=== PATIENT | male | born 1975 | race Hispanic/Latino ===

== ENCOUNTER 2020-04-11 16:44 | Inpatient (IN) | payer OTHER ==
[~2020-04-11] VITALS: Ht 185.4 cm; Wt 91.6 kg
[2020-04-11] MEDS ORDERED: HEPARIN SOD (PORCINE) 5,000 UNIT/ML VIAL IV ONE (17:15)
[2020-04-11] MEDS ORDERED: ASPIRIN 325 MG TAB PO ONE (17:15)
[2020-04-11] MEDS ORDERED: HEPARIN 25,000 UNIT 25,000 UNIT in DEXTROSE 5% 250ML 250 ML IV SCH (17:15)
[2020-04-11] MEDS ORDERED: HEPARIN 25,000 UNIT 1,000 UNIT in DEXTROSE 5% 250ML 250 ML IV SCH (17:30)
[2020-04-11] MEDS ORDERED: HEPARIN 25,000 UNIT DRIP IV ONE (17:38)
[2020-04-11 17:43] LABS: BASOPHILS # (AUTO) 0.1 (0.0-0.1); BASOPHILS % 0.4 % (0.0-1.0); EOSINOPHILS % 0.2 % (0.0-6.0); HEMATOCRIT 48.4 % (38.2-49.6); HEMOGLOBIN 16.3 g/dL (14.0-18.0); LYMPHOCYTES # (AUTO) 2.3 (1.0-3.2); LYMPHOCYTES % 13.1 % (18.0-39.1); MEAN CORPUSCULAR HEMOGLOBIN 28.5 pg (28-32); MEAN CORPUSCULAR HGB CONC 33.7 g/dL (31-35); MEAN CORPUSCULAR VOLUME 84.6 fL (81-99); MONOCYTES # (AUTO) 1.5 (0.2-0.8); MONOCYTES % 8.8 % (4.4-11.3); NEUTROPHILS # (AUTO) 13.2 (2.1-6.9); NEUTROPHILS % 76.6 % (38.7-80.0); PLATELET COUNT 265 x10e3/uL (140-360); RED BLOOD COUNT 5.72 x10e6/uL (4.3-5.7); RED CELL DISTRIBUTION WIDTH 13.8 % (11.7-14.4)
--- OUTSIDE RECORDS SUMMARY | 2020-04-11 17:55 | XMS REPORT | Continuity of Care Document ---
Author Author [facility] t Organization [facility] Address [address] [place] [address] Phone Unavailable Care Team Providers Care Hospitality Ambassador Name Role Phone Unavailable Unavailable Problems This patient has no known problems. Allergies, Adverse Reactions, Alerts This patient has no known allergies or adverse reactions. Social History Smoking Status Start Date Stop Date Source Former Smoker [facility] ractice Medications This patient has no known medications. Vital Signs Vital Name Observation Time Observation Value Comments Source BP Diastolic 2020-04-11 00:00:00 112 mm[Hg] [facility] Height 2020-04-11 00:00:00 73 [in_i] [facility] BMI (Body Mass Index) 2020-04-11 00:00:00 26.8 kg/m2 [facility] BP Systolic 2020-04-11 00:00:00 156 mm[Hg] [facility] Body Weight 2020-04-11 00:00:00 203 [lb_av] [facility] Procedures Procedure Date / Time Performed Performing Clinician Sourc e electrocardiogram 2020-04-11 00:00:00 [facility] Plan of Care Planned Activity Planned Date Details Comments Source Diagnostic Test Pending 2020-04-11 00:00:00 hepatitis C viru s RNA, quant, PCR, serum or plasma [code = hepatitis C virus RNA, quant, PCR, serum or plasma] [facility] Diagnostic Test Pending 2020-04-11 00:00:00 urinalysis, dips tick [code = urinalysis, dipstick] [facility] Diagnostic Test Pending 2020-04-11 00:00:00 CBC w/ auto diff [code = CBC w/ auto diff] [facility] Diagnostic Test Pending 2020-04-11 00:00:00 CMP, serum or pl asma [code = CMP, serum or plasma] [facility] Diagnostic Test Pending 2020-04-11 00:00:00 lipid panel, ser um [code = lipid panel, serum] [facility] Diagnostic Test Pending 2020-04-11 00:00:00 TSH, serum or pl asma [code = TSH, serum or plasma] [facility] Diagnostic Test Pending 2020-04-11 00:00:00 PSA, serum or pl asma [code = PSA, serum or plasma] [facility] Diagnostic Test Pending 2020-04-11 00:00:00 culture, urine [ code = culture, urine] [facility] Future Appointment 2020-10-08 00:00:00 Emre Samano Jr, [address]; [address], [place] [address] [facility] Encounters Start Date/Time End Date/Time Encounter Type Admission Type Attendi [facility] Care Department Encounter ID Source 2020-04-11 00:00:00 2020-04-11 00:00:00 Emre Samano Jr, MD: [id number], [address], [place] [address], Ph. [facility] [place] - [facility] - [facility] [id number] [facility] Results Test Description Test Time Test Comments Results Result Comments Source EKG study 2020-04-11 12:50:00 Test Item Rate & Rhythm (test code = Rate & Rhythm) sinus regular QRS (test code = QRS) [place] Interval (test code = [place] Interval) QRS Duration (test code = QRS Duration) QT Interval (test code = QT Interval) [facility]) panel - [id number] 11:14:00* Test Item Value Reference Range Interpretation Comments Color Color (test code = Color Color) dark yellow Color Appearance (test code = Color Appearance) clear Color Glucose (test code = Color Glucose) negative Color Bilirubin (test code = Color Bilirubin) small Color Ketones (test code = Color Ketones) trace Color Specific [place] (test code = Color Specific [place]) 1.030 Color Blood (test code = Color Blood) moderate Color PH (test code = Color PH) 6.0 Color Protein (test code = Color Protein) 100 Color Urobilinogen (test code = Color Urobilinogen) 0.2 Color Nitrites (test code = Color Nitrites) negative Color Leukocytes (test code = Color Leukocytes) negative [facility]
[2020-04-11 17:58] LABS: ALANINE AMINOTRANSFERASE 63 IU/L (0-55); ALBUMIN 3.8 g/dL (3.5-5.0); ALKALINE PHOSPHATASE 71 IU/L (40-150); ANION GAP 12.8 mmol/L (8-16); BLOOD UREA NITROGEN 12 mg/dL (7-26); BUN/CREATININE RATIO 16 (6-25); CALCIUM 8.9 mg/dL (8.4-10.2); CARBON DIOXIDE 23 mmol/L (22-29); CHLORIDE 105 mmol/L (98-107); CREATINE KINASE 1638 IU/L (30-200); CREATININE, SERUM 0.77 mg/dL (0.72-1.25); EST GLOMERULAR FILTRATION RATE > 60 ML/MIN (60-); GLUCOSE 103 mg/dL (74-118); POTASSIUM 3.8 mmol/L (3.5-5.1); SODIUM 137 mmol/L (136-145)
[2020-04-11 18:02] LABS: INR 0.94
[2020-04-11 18:03] LABS: PARTIAL THROMBOPLASTIN TIME 28.7 seconds (23.8-35.5)
--- NOTE | 2020-04-11 18:14 | Emergency Department Note ---
History of Present Illnes History of Present Illness Chief Complaint: Chest Pain History of Present Illness This is a 44 year old male Chief Complaint Comment PATIENT SENT BY DR PYLE FOR HEART CATH; PATIENT WITH CHEST PAIN STARTING YESTERDAY WHILE HE WAS PLAYING TENNIS; RATES PAIN 5/10 AT THIS TIME. PATIENT ALERT AND ORIENTED, RESP EVEN AND NONLABORED, APPEARS IN NO DISTRESS Historian: Patient Arrival Mode: Car Engineering Supervisor Required: No Onset (how long ago): day(s) (1) Location: Chest Quality: sharp Radiation: Reports non-radiation Severity: moderate Onset quality: sudden Duration (how long): day(s) (1) Timing of current episode: constant Progression: worsening Chronicity: new Context: Denies recent illness, Denies recent surgery Relieving factors: none Exacerbating factors: none Associated symptoms: Reports denies other symptoms Treatments prior to arrival: none Past Medical/Family History Physician Review I have reviewed the patient's past medical and family history. Any updates have been documented here. Past Medical History Recent Fever: No Clinical Suspicion of Infectio: No New/Unexplained Change in Ment: No Past Medical History: None Past Surgical History: None Social History Smoking Cessation: Never Smoker Counseling Performed: No Alcohol Use: Occasional Any Illegal Drug Use: No Physically hurt or threatened: No Other Any Pre-Existing Lines (PICC,: No Review of Systems Review of Systems Constitutional: Reports as per HPI EENTM: Reports no symptoms Cardiovascular: Reports as per HPI Respiratory: Reports no symptoms Gastrointestinal: Reports no symptoms Genitourinary: Reports no symptoms Musculoskeletal: Reports no symptoms Integumentary: Reports no symptoms Neurological: Reports no symptoms Psychological: Reports no symptoms Endocrine: Reports no symptoms Hematological/Lymphatic: Reports no symptoms Physical Exam Related Data Allergies: Coded Allergies: No Known Allergies (Unverified , 04/11/20) Triage Vital Signs Vital Signs Date Time Temp Pulse Resp B/P (MAP) Pulse Ox O2 Delivery O2 Flow Rate FiO2 04/11/20 16:59 99.3 123 18 143/108 97 Room Air Vital signs reviewed: Yes Physical Exam CONSTITUTIONAL Constitutional: Present well-developed, Present well-nourished HENT HENT: Present normocephalic, Present atraumatic, Present oropharynx clear/moist, Present nose normal HENT L/R: Present left ext ear normal, Present right ext ear normal EYES Eyes: Reports PERRL, Reports conjunctivae normal NECK Neck: Present ROM normal PULMONARY Pulmonary: Present effort normal, Present breath sounds normal CARDIOVASCULAR Cardiovascular: Present regular rhythm, Present heart sounds normal, Present capillary refill normal, Present normal rate GASTROINTESTINAL Abdominal: Present soft, Present nontender, Present bowel sounds normal GENITOURINARY Genitourinary: Present exam deferred SKIN Skin: Present warm, Present dry MUSCULOSKELETAL Musculoskeletal: Present ROM normal NEUROLOGICAL Neurological: Present alert, Present oriented x 3, Present no gross motor or sensory deficits PSYCHOLOGICAL Psychological: Present mood/affect normal, Present judgement normal Results Laboratory Result Diagram: 04/11/20169904/11/201699 Laboratory Laboratory Tests Test 04/11/20 17:00 White Blood Count 17.22 x10e3/uL (4.8-10.8) Red Blood Count 5.72 x10e6/uL (4.3-5.7) Hemoglobin 16.3 g/dL (14.0-18.0) Hematocrit 48.4 % (38.2-49.6) Mean Corpuscular Volume 84.6 fL (81-99) Mean Corpuscular Hemoglobin 28.5 pg (28-32) Mean Corpuscular Hemoglobin Concent 33.7 g/dL (31-35) Red Cell Distribution Width 13.8 % (11.7-14.4) Platelet Count 265 x10e3/uL (140-360) Neutrophils (%) (Auto) 76.6 % (38.7-80.0) Lymphocytes (%) (Auto) 13.1 % (18.0-39.1) Monocytes (%) (Auto) 8.8 % (4.4-11.3) Eosinophils (%) (Auto) 0.2 % (0.0-6.0) Basophils (%) (Auto) 0.4 % (0.0-1.0) Neutrophils # (Auto) 13.2 (2.1-6.9) Lymphocytes # (Auto) 2.3 (1.0-3.2) Monocytes # (Auto) 1.5 (0.2-0.8) Eosinophils # (Auto) 0.0 (0.0-0.4) Basophils # (Auto) 0.1 (0.0-0.1) Absolute Immature Granulocyte (auto 0.15 x10e3/uL (0-0.1) Prothrombin Time 13.0 seconds (11.9-14.5) Prothromb Time International Ratio 0.94 Activated Partial Thromboplast Time 28.7 seconds (23.8-35.5) Sodium Level 137 mmol/L (136-145) Potassium Level 3.8 mmol/L (3.5-5.1) Chloride Level 105 mmol/L (98-107) Carbon Dioxide Level 23 mmol/L (22-29) Anion Gap 12.8 mmol/L (8-16) Blood Urea Nitrogen 12 mg/dL (7-26) Creatinine 0.77 mg/dL (0.72-1.25) Estimat Glomerular Filtration Rate > 60 ML/MIN (60-) BUN/Creatinine Ratio 16 (6-25) Glucose Level 103 mg/dL (74-118) Calcium Level 8.9 mg/dL (8.4-10.2) Total Bilirubin 0.7 mg/dL (0.2-1.2) Aspartate Amino Transf (AST/SGOT) 217 IU/L (5-34) Alanine Aminotransferase (ALT/SGPT) 63 IU/L (0-55) Alkaline Phosphatase 71 IU/L (40-150) Creatine Kinase 1638 IU/L (30-200) Creatine Kinase MB 136.70 ng/mL (0-5.0) Troponin I 40.674 ng/mL (0-0.300) Total Protein 7.7 g/dL (6.5-8.1) Albumin 3.8 g/dL (3.5-5.0) Globulin 3.9 g/dL (2.3-3.5) Albumin/Globulin Ratio 1.0 (0.8-2.0) Lab results reviewed: Yes Imaging Imaging results reviewed: Yes Procedures 12 Lead ECG Interpretation ECG Interpretation : Engineering Supervisor: Interpreted by ED physician Date: Apr 11, 2020 Rhythm: sinus rhythm Rate: normal QRS axis: normal ST segment elevation: I, II, aVL Clinical Impression: myocardial ischemia Assessment & Plan Medical Decision Making MDM 44-year-old otherwise healthy male presents from Dr. Kennedy's clinic for concerns for STEMI. Dr. luciano is made aware and will take to the catheter lab. EKG is consistent with lateral STEMI. 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 Reassessment Reassessment time: 18:13 Reassessment NAD Assessment & Plan Final Impression: (1) STEMI (ST elevation myocardial infarction) Depart Disposition: ADMITTED Last Vital Signs Date Time Temp Pulse Resp B/P (MAP) Pulse Ox O2 Delivery O2 Flow Rate FiO2 04/11/20 16:59 99.3 123 18 143/108 97 Room Air Medications in the ED Aspirin 325 mg ONCE ONCE PO Last administered on 04/11/20at 17:37; Admin Dose 325 MG; Start 04/11/20 at 17:15; Stop 04/11/20 at 17:18; Status DC Heparin Sodium (Porcine) 4,000 unit ONCE ONCE IV Last administered on 04/11/20at 17:37; Admin Dose 4,000 UNIT; Start 04/11/20 at 17:15; Stop 04/11/20 at 17:19; Status DC Heparin Sodium/ Dextrose 95485 unit/Dextrose 250 ml @ 0 mls/hr TITRATE IV ; Start 04/11/20 at 17:15; Stop 04/18/20 at 17:14; Status UNV Heparin Sodium/ Dextrose 1000 unit/Dextrose 250 ml @ 10 mls/hr TITRATE IV Last administered on 04/11/20at 17:37; Admin Dose 10 MLS/HR; Start 04/11/20 at 17:30; Stop 04/18/20 at 17:29 Heparin Sodium/ Dextrose 25,000 unit STK-MED ONCE IV ; Start 04/11/20 at 17:38; Stop 04/11/20 at 17:32; Status DC LEIGHANN LOMBARDI MD Apr 11, 2020 18:14
--- OUTSIDE RECORDS SUMMARY | 2020-04-11 18:20 | XMS REPORT | Continuity of Care Document ---
Author Author [facility] t Organization [facility] Address [address] [place] [address] Phone Unavailable Care Team Providers Care Software Engineer Advisor Name Role Phone Unavailable Unavailable Problems This patient has no known problems. Allergies, Adverse Reactions, Alerts This patient has no known allergies or adverse reactions. Social History Smoking Status Start Date Stop Date Source Former Smoker [facility] ractice Medications This patient has no known medications. Vital Signs Vital Name Observation Time Observation Value Comments Source BP Diastolic 2020-04-11 00:00:00 112 mm[Hg] [facility] Height 2020-04-11 00:00:00 73 [in_i] [facility] BMI (Body Mass Index) 2020-04-11 00:00:00 26.8 kg/m2 [facility] BP Systolic 2020-04-11 00:00:00 156 mm[Hg] [facility] Body Weight 2020-04-11 00:00:00 203 [lb_av] [facility] Procedures Procedure Date / Time Performed Performing Clinician Sourc e electrocardiogram 2020-04-11 00:00:00 [facility] Plan of Care Planned Activity Planned Date Details Comments Source Diagnostic Test Pending 2020-04-11 00:00:00 hepatitis C viru s RNA, quant, PCR, serum or plasma [code = hepatitis C virus RNA, quant, PCR, serum or plasma] [facility] Diagnostic Test Pending 2020-04-11 00:00:00 urinalysis, dips tick [code = urinalysis, dipstick] [facility] Diagnostic Test Pending 2020-04-11 00:00:00 CBC w/ auto diff [code = CBC w/ auto diff] [facility] Diagnostic Test Pending 2020-04-11 00:00:00 CMP, serum or pl asma [code = CMP, serum or plasma] [facility] Diagnostic Test Pending 2020-04-11 00:00:00 lipid panel, ser um [code = lipid panel, serum] [facility] Diagnostic Test Pending 2020-04-11 00:00:00 TSH, serum or pl asma [code = TSH, serum or plasma] [facility] Diagnostic Test Pending 2020-04-11 00:00:00 PSA, serum or pl asma [code = PSA, serum or plasma] [facility] Diagnostic Test Pending 2020-04-11 00:00:00 culture, urine [ code = culture, urine] [facility] Future Appointment 2020-10-08 00:00:00 Emre Samano Jr, [address]; [address], [place] [address] [facility] Encounters Start Date/Time End Date/Time Encounter Type Admission Type [facility] Encounter ID Source 2020-04-11 00:00:00 2020-04-11 00:00:00 Emre Samano Jr, MD: [address], [address], [place] [address], Ph. [facility] [place] - [facility] - _[facility] [id number] [facility] Results Test Description Test Time Test Comments Results Result Comments Source EKG study 2020-04-11 12:50:00 Test Item Rate & Rhythm (test code = Rate & Rhythm) sinus regular QRS (test code = QRS) [place] Interval (test code = RI Interval) QRS Duration (test code = QRS Duration) QT Interval (test code = QT Interval) [facility] macro (dipstick) panel - [id number] 11:14:00* Test Item Value Reference Range Interpretation Comments Color Color (test code = Color Color) dark yellow Color Appearance (test code = Color Appearance) clear Color Glucose (test code = Color Glucose) negative Color Bilirubin (test code = Color Bilirubin) small Color Ketones (test code = Color Ketones) trace Color Specific [place] (test code = Color Specific [place]) 1.030 Color Blood (test code = Color Blood) moderate Color PH (test code = Color PH) 6.0 Color Protein (test code = Color Protein) 100 Color Urobilinogen (test code = Color Urobilinogen) 0.2 Color Nitrites (test code = Color Nitrites) negative Color Leukocytes (test code = Color Leukocytes) negative [facility]
[2020-04-11] MEDS ORDERED: HEPARIN SOD/SOD CHLORIDE 2,000 ML ONE (18:46)
[2020-04-11] MEDS ORDERED: LIDOCAINE HCL 2% LOCAL 20 ML VIAL ONE (18:46)
[2020-04-11] MEDS ORDERED: IOPAMIDOL 370 MG/ML 200 ML INFUS..BTL INJ ONE (18:46)
[2020-04-11] MEDS ORDERED: FENTANYL CITRATE/PF 100MCG/2 ML INJ ONE (19:16)
[2020-04-11] MEDS ORDERED: MIDAZOLAM HCL 2 MG/2 ML VIAL ONE (19:16)
[2020-04-11] MEDS ORDERED: SODIUM CHLORIDE 0.9% 1000ML 1,000 ML ONE (19:16)
[2020-04-11] MEDS ORDERED: HEPARIN SOD (PORCINE) 1000 UNIT/ML 30ML ONE (19:17)
[2020-04-11] MEDS ORDERED: NITROGLYCERIN/D5W 200 MCG/ML 250 ML ONE (19:17)
[2020-04-11] MEDS ORDERED: BIVALRIUDIN 250 MG/VIAL VIAL IV ONE (19:18)
[2020-04-11] MEDS ORDERED: SODIUM CHLORIDE 0.9% 50ML 50 ML ONE (19:18)
--- NOTE | 2020-04-11 19:20 | NUR ---
TAKEN TO SUPERVISOR HAIRSPRING FABRICATION, 2CKAVITHA RN'S AT BS TO TRANSPORT
[2020-04-11] MEDS ORDERED: PRASUGREL 10 MG TAB ONE (19:59)
[2020-04-11] MEDS ORDERED: EPTIFIBATIDE 20 ML ONE (20:00)
[2020-04-11] MEDS ORDERED: EPTIFIBATIDE 75mg 100ML 0 ML ONE (20:00)
[2020-04-11] MEDS ORDERED: MORPHINE SULFATE INJ 4 MG/ML INJ 1ML IV PRN (20:30)
[2020-04-11] MEDS ORDERED: HYDROCODONE/APAP 5MG-325MG TAB PO PRN (20:30)
[2020-04-11] MEDS ORDERED: METOPROLOL SUCCINATE 25 MG TAB XL PO ONE (20:30)
[2020-04-11] MEDS ORDERED: ONDANSETRON HCL INJ 2MG/ML 2ML 2 MG/ML VIAL IV PRN (20:30)
[2020-04-11] MEDS ORDERED: ZOLPIDEM TARTRATE 5 MG TAB PO PRN (20:30)
[2020-04-11] MEDS ORDERED: SODIUM CHLORIDE FLUSH 10 ML SYR INJ PRN (20:30)
[2020-04-11] MEDS ORDERED: ACETAMINOPHEN 325 MG TAB PO PRN (20:30)
[2020-04-11 20:45] VITALS: BP 121/91
--- NOTE | 2020-04-11 20:45 | Diagnostic Imaging Report ---
EXAMINATION: CHEST SINGLE (PORTABLE) INDICATION: Chest pain. COMPARISON: None FINDINGS: TUBES and LINES: None. LUNGS: Lungs are mildly hypoinflated. There is no evidence of pneumonia or pulmonary edema. PLEURA: No pleural effusion or pneumothorax. HEART AND MEDIASTINUM: The cardiomediastinal silhouette is unremarkable. BONES AND SOFT TISSUES: No acute osseous lesion. Soft tissues are unremarkable. UPPER ABDOMEN: No free air under the diaphragm. IMPRESSION: No acute thoracic abnormality. Signed by: Dr. Joao Ho M.D. on 04/11/2020 8:42 PM
[2020-04-11 20:57] VITALS: BP 124/91
[2020-04-11] MEDS: ATORVASTATIN 40 MG TAB PO SCH (21:38)
[2020-04-11] MEDS: SODIUM CHLORIDE 0.9% 1000ML 1,000 ML IV SCH (21:39)
[2020-04-11 21:40] VITALS: BP 119/93
[2020-04-11 21:44] VITALS: BP 119/93
[2020-04-11 22:09] VITALS: BP 119/93
[2020-04-12] VITALS (11 sets, daily range): BP systolic 118–134; BP diastolic 59–100
--- NOTE | 2020-04-12 00:59 | Operative Report ---
DATE OF PROCEDURE: 04/11/2020 SURGEON: Jt Umana MD INDICATIONS: 1. Non ST-segment elevation myocardial infarction. 2. Acute systolic heart failure. PROCEDURES PERFORMED: 1. Left heart catheterization, selective coronary angiography. 2. Thrombectomy, angioplasty and stent placed in the proximal left anterior descending artery. 3. Conscious sedation, administration, hemodynamic and neurological monitoring in recovery by laborer dairy farm RN, supervision by MD, 65 minutes. 4. Deployment of right groin Perclose closure device. COMPLICATIONS: None. RECOMMENDATIONS: Dual antiplatelet therapy for at least one year. DESCRIPTION OF PROCEDURE: Access obtained in the right femoral artery. A 6-Cuban sheath was placed. The patient was administered intravenous Angiomax, oral prasugrel, aspirin as well as intracoronary Integrilin for anticoagulation. The left main was cannulated using XB 3.0, 6-Cuban guiding catheter, 99% proximal left anterior descending artery stenosis with thrombus and SHE 1 flow. Mid left anterior descending artery 50% stenosis circumflex mid 50% stenosis. Right coronary artery dominant vessel. Diffuse 20-30% stenosis. LV end-diastolic pressure was markedly elevated. A short Runthrough wire was advanced across the lesion for support. Thrombectomy using an export catheter. Following which, predilatation with 2.5 mm balloon was performed. A single 3.0 x 20 mm synergy drug-eluting stent was deployed at 20 atmospheres post dilated with a 3.5 mm noncompliant balloon, excellent end result, 0% residual stenosis SHE-3 flow. No complications. Wire and guide sheath were removed. Right groin repaired using Perclose closure device. The patient admitted as an inpatient to the hospital. Jt Umana MD KSB/MODL /[id number]
[2020-04-12 05:10] LABS: BASOPHILS # (AUTO) 0.1 (0.0-0.1); BASOPHILS % 0.4 % (0.0-1.0); EOSINOPHILS # (AUTO) 0.1 (0.0-0.4); EOSINOPHILS % 0.4 % (0.0-6.0); HEMATOCRIT 45.6 % (38.2-49.6); HEMOGLOBIN 15.4 g/dL (14.0-18.0); LYMPHOCYTES # (AUTO) 2.9 (1.0-3.2); LYMPHOCYTES % 21.4 % (18.0-39.1); MEAN CORPUSCULAR HEMOGLOBIN 28.6 pg (28-32); MEAN CORPUSCULAR HGB CONC 33.8 g/dL (31-35); MEAN CORPUSCULAR VOLUME 84.6 fL (81-99); MONOCYTES # (AUTO) 1.3 (0.2-0.8); MONOCYTES % 9.3 % (4.4-11.3); NEUTROPHILS # (AUTO) 9.1 (2.1-6.9); NEUTROPHILS % 67.8 % (38.7-80.0); PLATELET COUNT 219 x10e3/uL (140-360); RED BLOOD COUNT 5.39 x10e6/uL (4.3-5.7)
[2020-04-12 05:31] LABS: ANION GAP 12.6 mmol/L (8-16); BLOOD UREA NITROGEN 10 mg/dL (7-26); BUN/CREATININE RATIO 13 (6-25); CALCIUM 8.4 mg/dL (8.4-10.2); CARBON DIOXIDE 22 mmol/L (22-29); CHLORIDE 108 mmol/L (98-107); CHOL/HDL RATIO 4.7 (3.9-4.7); CHOLESTEROL 193 MD/DL (0-199); CREATININE, SERUM 0.75 mg/dL (0.72-1.25); EST GLOMERULAR FILTRATION RATE > 60 ML/MIN (60-); GLUCOSE 108 mg/dL (74-118); HDL CHOLESTEROL 41 MG/DL (40-60); LDL CHOLESTEROL 123 MG/DL (60-130); POTASSIUM 3.6 mmol/L (3.5-5.1); SODIUM 139 mmol/L (136-145); TRIGLYCERIDES 147 MG/DL (0-149)
[2020-04-12] MEDS: SODIUM CHLORIDE 0.9% 1000ML 1,000 ML IV SCH ×2 (07:56→15:32)
[2020-04-12] MEDS: SPIRONOLACTONE 25 MG TAB PO SCH (08:00)
[2020-04-12] MEDS: ASPIRIN 81 MG ENTERIC COATED PO SCH (08:00)
[2020-04-12] MEDS: PRASUGREL 10 MG TAB PO SCH (08:00)
[2020-04-12] MEDS: VALSARTAN/SACUBITRIL 24MG/26MG 1 EA TAB PO SCH ×2 (08:00→16:47)
[2020-04-12] MEDS ORDERED: METOPROLOL SUCCINATE 25 MG TAB XL PO SCH (09:00)
[2020-04-12] MEDS ORDERED: METOPROLOL SUCCINATE 25 MG TAB XL PO ONE (17:00)
--- NOTE | 2020-04-12 17:03 | Progress Note ---
DATE: Cardiology Progress Note SUBJECTIVE: The patient is feeling better. He ambulated in the hallway. No chest pain or shortness of breath. OBJECTIVE: VITAL SIGNS: Temperature is 98.7, heart rate is 105, respiratory rate is 15, blood pressure is 120/88, and oxygen saturation 99% on room air. GENERAL: Well-appearing, in no apparent distress. CARDIOVASCULAR: Tachycardic. Regular rhythm. LUNGS: Clear to auscultation. ABDOMEN: Soft, nontender, and nondistended. EXTREMITIES: No clubbing, cyanosis, or edema. CARDIOVASCULAR MEDICATIONS: Reviewed. LABORATORY DATA: Reviewed. Creatinine is 0.75. AST 217 and ALT 63. Telemonitoring shows sinus tachycardia. IMPRESSION: 1. Edk-IV-tjvyooosi myocardial infarction. 2. Acute systolic congestive heart failure. 3. Elevated liver function. 4. Hypertension. 5. Hyperlipidemia. 6. Tachycardia. RECOMMENDATIONS: Continue current cardiovascular medications. Cautious use with statins is advised, however, we will need follow up on his liver function test. We will increase Toprol-XL for better rate control. The patient will need LifeVest prior to discharge. Tony Terrell DO BM/MODL /[id number]
[2020-04-12] MEDS: ATORVASTATIN 40 MG TAB PO SCH (20:29)
[2020-04-13 04:00] VITALS: BP 109/73
--- NOTE | 2020-04-13 07:00 | NUR ---
BEDSIDE SHIFT REPORT RECEIVED FROM THE STUNT PERFORMER RN. EDUCATED PT ABOUT FALL PRECAUTIONS. PT VERBALIZED UNDERSTANDING. CALL LIGHT WITH IN EASY REACH. INSTRUCTED PT TO USE CALL LIGHT FOR ALL THE NEEDS. BED IS LOW AND LOCKED. SIDE RAILS X2. ALL SAFETY MEASURES IN PLACE. PT DENIES NEEDS AT THIS TIME.
[2020-04-13 08:18] VITALS: BP 105/79
[2020-04-13 08:44] VITALS: BP 105/79
[2020-04-13] MEDS ORDERED: METOPROLOL SUCCINATE 25 MG TAB XL PO SCH (09:00)
[2020-04-13] MEDS ORDERED: METOPROLOL SUCCINATE 50 MG TAB XL PO SCH (09:00)
[2020-04-13] MEDS: ASPIRIN 81 MG ENTERIC COATED PO SCH (09:20)
[2020-04-13] MEDS: SPIRONOLACTONE 25 MG TAB PO SCH (09:23)
[2020-04-13] MEDS: PRASUGREL 10 MG TAB PO SCH (09:25)
[2020-04-13] MEDS: VALSARTAN/SACUBITRIL 24MG/26MG 1 EA TAB PO SCH ×2 (09:25→16:06)
[2020-04-13 12:12] VITALS: BP 103/71
--- NOTE | 2020-04-13 15:44 | NUR ---
Spoke to Lan with [facility]. States pt has been approved but they are waiting for someone to come fit the pt. Said it should happen today.
[2020-04-13 16:07] VITALS: BP 107/79
[2020-04-13] MEDS ORDERED: ALDACTONE25 MG PO (16:47)
[2020-04-13] MEDS ORDERED: EFFIENT10 MG PO ×2 (16:47→20:00)
[2020-04-13] MEDS ORDERED: TOPROL XL50 MG PO ×2 (16:47→19:45)
[2020-04-13] MEDS ORDERED: Valsartan/Sacubitril 24MG/26MG PO (16:47)
[2020-04-13] MEDS ORDERED: Atorvastatin PO (16:47)
[2020-04-13] MEDS ORDERED: ASPIRIN EC81 MG PO (16:47)
--- NOTE | 2020-04-13 18:00 | NUR ---
REBECCA TO D/C PT PER DR. ANTONY. 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
--- NOTE | 2020-04-13 18:15 | NUR ---
PEDRO CRUZT RN AT BEDSIDE.
--- NOTE | 2020-04-13 18:48 | Progress Note ---
DATE: Cardiology Progress Note SUBJECTIVE: The patient is feeling better. Denies any chest pain, shortness of breath, or palpitations. OBJECTIVE: VITAL SIGNS: Temperature is 99, heart rate 90, respirations 16, blood pressure is 103/71, and oxygen saturation 99% on room air. GENERAL: Well-appearing, well-built, in no apparent distress. Alert and oriented x3. CARDIOVASCULAR: Regular rate and rhythm. LUNGS: Clear to auscultation. ABDOMEN: Soft, nontender, and nondistended. EXTREMITIES: No clubbing, cyanosis, or edema. VASCULAR: 2+ pulses. SKIN: Warm, dry, and intact. NEUROLOGIC: No focal deficits noted. LABORATORY DATA: Reviewed. CARDIOVASCULAR MEDICATIONS: Reviewed. TELEMETRY: Monitoring shows normal sinus rhythm. IMPRESSION: 1. Wff-MM-qetbeguux myocardial infarction. 2. Acute systolic congestive heart failure. 3. Elevated LFTs. 4. Hypertension. 5. Hyperlipidemia. RECOMMENDATIONS: Continue current cardiovascular medications. His tachycardia has improved. Continue optimal medical therapy for his heart failure. The patient will need LifeVest prior to discharge. Continue dual antiplatelet therapy and statin for his coronary artery disease. Tony Terrell DO BM/MODL /[id number]
--- NOTE | 2020-04-13 18:50 | NUR ---
BEDSIDE SHIFT REPORT GIVEN TO THE CRYPTOZOOLOGIST RN. PT AT BEDSIDE. PT DENIED FURTHER NEEDS.
--- NOTE | 2020-04-13 18:50 | NUR ---
RECEIVED BEDSIDE SHIFT REPORT FROM PREVIOUS NURSE. CALL LIGHT WITHIN REACH. PATIENT SITTING IN BED. AT BEDSIDE. PATIENT SAID HE WAS EDUCATED ON THE LIFE VEST THAT WAS GIVEN TO HIM.
[2020-04-13] MEDS ORDERED: ENTRESTO 24 MG1 EACH PO (19:44)
[2020-04-13] MEDS ORDERED: ATORVASTATIN CA20 MG PO (19:57)
[2020-04-13] MEDS ORDERED: SPIRONOLACTONE25 MG PO (19:57)
[2020-04-13 20:00] VITALS: BP 107/79
--- NOTE | 2020-04-13 20:35 | NUR ---
PATIENT AND HIS COLLECTED ALL THEIR BELONGINGS. IV WITH CATH WAS REMOVED AT 2029. PATIENT WAS GIVEN PRESCRIPTIONS AND DISCHARGE INSTRUCTIONS. PATIENT VERBALIZED UNDERSTANDING. DR. PYLE OFFICE WAS CALLED AND DR. ANAYA SAID PATIENT CAN BE DISCHARGED, PATIENT CAN RETURN TO WORK BUT SHOULD NOT DO ANY HEAVY LIFTING OR STENOUS ACTIVITIES. PATIENT WAS TOLD NOT TO LIFT ANY HEAVY OBJECTS OR DO STENOUS ACTIVITIES. ALSO WAS TOLD HE CAN RETURN TO WORK ON THURSDAY BUT SHOULD DO NO HEAVY LIFTING OR STENOUS ACTIVITIES. PATIENT VERBALIZED UNDERSTANDING. PATIENT LEFT WITH BELONGINGS VIA WHEELCHAIR TO HIS PRIVATE AUTO. PATIENT VERBALIZED NO PAIN OR DISTRESS.
== END 2020-04-13 20:35 | disposition home or self-care (01) | DRG 246 ==
LOC: ER 16:54 → ERHOLD 18:10 → IMCU 21:15 → MED/SURG2 04-12 21:44
PROVIDERS: ADMIT Internal Medicine Interventional Cardiology; ATTEND Internal Medicine Interventional Cardiology
PROC: 027034Z Dilation of Coronary Artery, One Artery with Drug-eluting Intraluminal Device, Percutaneous Approach (ICD-10-PCS; principal; 2020-04-11)
PROC: 02C03ZZ Extirpation of Matter from Coronary Artery, One Artery, Percutaneous Approach (ICD-10-PCS; 2020-04-11)
PROC: 3E07317 Introduction of Other Thrombolytic into Coronary Artery, Percutaneous Approach (ICD-10-PCS; 2020-04-11)
PROC: 4A023N7 Measurement of Cardiac Sampling and Pressure, Left Heart, Percutaneous Approach (ICD-10-PCS; 2020-04-11)
PROC: B2111ZZ Fluoroscopy of Multiple Coronary Arteries using Low Osmolar Contrast (ICD-10-PCS; 2020-04-11)
PROC: B2151ZZ Fluoroscopy of Left Heart using Low Osmolar Contrast (ICD-10-PCS; 2020-04-11)
DX: I21.4 Non-ST elevation (NSTEMI) myocardial infarction (principal); I50.21 Acute systolic (congestive) heart failure; I11.0 Hypertensive heart disease with heart failure; E78.5 Hyperlipidemia, unspecified; R94.5 Abnormal results of liver function studies; R00.0 Tachycardia, unspecified; Z11.59 Encounter for screening for other viral diseases
CPT/HCPCS: 36415; 71045; 80048; 80053; 80061; 82550; 82553; 84484; 85025; 85610; 85730; 92928; 92973; 93005; 93306; 93454; 99152; 99153; 99284; C1725; C1757; C1760; C1769; C1874; J0583; J1327; J1644; J2001; J2250; J3010; J7030; Q9967